=== PATIENT | female | born 1980 | race Caucasian/White ===

== ENCOUNTER 2023-12-03 17:40 | Inpatient (IN) | payer OTHER ==
[2023-12-03 18:56] VITALS: BMI 24.8
[2023-12-03] MEDS ORDERED: BISMUTH SUBSALICYLATE 524 MG/30 ML PO PRN (20:32)
[2023-12-03] MEDS ORDERED: IBUPROFEN 400 MG TABLET (FP) PO PRN (20:32)
[2023-12-03] MEDS ORDERED: chlordiazePOXIDE HCL 25 MG CAPSULE PO PRN (20:32)
[2023-12-03] MEDS ORDERED: ONDANSETRON *ODT* 4 MG TABLET SL PRN (20:32)
[2023-12-03] MEDS ORDERED: NALOXONE (NARCAN) HCL 4 MG/0.1 ML SPRAY NS PRN (20:32)
[2023-12-03] MEDS ORDERED: BENZOCAINE/MENTHOL (CHLORASEPTIC ) LOZENGE MM PRN (20:32)
[2023-12-03] MEDS ORDERED: guaiFENesin 600 MG TABLET.ER (FP) PO PRN (20:32)
[2023-12-03] MEDS ORDERED: BENZONATATE 200 MG CAPSULE PO PRN (20:32)
[2023-12-03] MEDS ORDERED: NALOXONE (NYS OPIOID OVERDOSE PROGRAM) 4 MG/0.1 ML SPRAY NS PRN (20:32)
[2023-12-03] MEDS ORDERED: LOPERAMIDE HCL 2 MG CAPSULE PO PRN (20:32)
[2023-12-03] MEDS ORDERED: POLYETHYLENE GLYCOL (HEALTHYLAX) 3350 17 GM PACKET PO PRN (20:32)
[2023-12-03] MEDS ORDERED: cloNIDine HCL 0.1 MG TABLET ONE (20:44)
[2023-12-03] MEDS: cloNIDine HCL 0.1 MG TABLET PO ONE (20:46)
[2023-12-03] MEDS: chlordiazePOXIDE HCL 25 MG CAPSULE PO ONE (20:46)
[2023-12-03] MEDS: IBUPROFEN 600 MG TABLET (FP) PO PRN (21:01)
[2023-12-03] MEDS ORDERED: MELATONIN 5 MG TABLETS ONE (22:24)
[2023-12-03] MEDS: MELATONIN 5 MG TABLETS PO SCH (22:26)
[2023-12-03] MEDS: THIAMINE 100 MG TABLET PO SCH (22:26)
[2023-12-03] MEDS: chlordiazePOXIDE HCL 25 MG CAPSULE PO SCH (23:58)
[2023-12-04] MEDS: METHOCARBAMOL 500 MG TABLET PO PRN (05:58)
[2023-12-04] MEDS: hydrOXYzine PAMOATE 25 MG CAPSULE (FP) PO PRN (10:19)
[2023-12-04] MEDS: PRENATAL VITAMINS W/ FOLIC ACID TABLET (FP) PO SCH (10:21)
[2023-12-04 14:38] LABS: CHLORIDE 102 mmol/L (98-107); POTASSIUM 3.6 mmol/L (3.5-5.1); SODIUM 135 mmol/L (136-145)
[2023-12-04 14:44] LABS: ALBUMIN 3.1 g/dl (3.4-5.0); CALCIUM 8.7 mg/dL (8.5-10.1)
[2023-12-04 14:45] LABS: ANION GAP 7 mmol/L (4-13); BLOOD UREA NITROGEN 10.3 mg/dL (7-18); CO2 26 mmol/L (21-32); GLUCOSE,RANDOM 156 mg/dL (74-106); HEMATOCRIT 36.5 % (32.4-45.2); HEMOGLOBIN 12.2 GM/dL (10.7-15.3); MCH 30.6 pg (25.7-33.7); MCHC 33.4 g/dl (32.0-36.0); MEAN CELL VOLUME 91.5 fl (80-96); MEAN PLT VOLUME 8.2 fl (7.5-11.1); PLATELET COUNT 89 10^3/uL (134-434); RBC 3.98 M/mm3 (3.60-5.2); RDW 14.2 % (11.6-15.6)
[2023-12-04 14:47] LABS: CREATININE 0.5 mg/dL (0.55-1.3); SGOT/AST 25 U/L (15-37); SGPT/ALT 35 U/L (13-61)
[2023-12-04 14:49] LABS: BILIRUBIN,TOTAL 1.5 mg/dL (0.2-1); TOT PROT 6.2 g/dl (6.4-8.2)
[2023-12-04 14:51] LABS: ALK PHOS 80 U/L (45-117)
[2023-12-04] MEDS: ACETAMINOPHEN 325 MG TABLET (FP) PO PRN (15:05)
[2023-12-04 15:32] LABS: HIV INTERPRETATION NEGATIVE (NEGATIVE)
[2023-12-04] MEDS: SUVOREXANT 10 MG TABLET PO PRN (22:34)
[2023-12-05] MEDS: chlordiazePOXIDE HCL 25 MG CAPSULE PO SCH (05:46)
[2023-12-05] MEDS: FAMOTIDINE 20 MG TABLET PO SCH (07:36)
[2023-12-05] MEDS: DICYCLOMINE HCL 10 MG CAPSULE PO PRN (10:55)
[2023-12-05] MEDS: metoPROLOL SUCCINATE 25 MG TAB.SR.24H (FP) PO SCH (22:32)
[2023-12-06] MEDS ORDERED: chlordiazePOXIDE HCL 10 MG CAPSULE PO PRN
[2023-12-06] MEDS: chlordiazePOXIDE HCL 10 MG CAPSULE PO SCH (05:52)
[2023-12-06] MEDS: MAG HYDROX/AL HYDROX/SIMETH 30 ML UNIT-DOSE CUP PO PRN (11:06)
[2023-12-06] MEDS: MAGNESIUM HYDROX 2400MG/30ML ORAL SUSPENSION 30 ML CUP PO PRN (11:56)
[2023-12-06] MEDS: DOCUSATE SODIUM 100 MG CAPSULE (FP) PO SCH ×2 (12:59→22:20)
[2023-12-06] MEDS: METOPROLOL TARTRATE 50 MG TABLET (FP) PO ONE (13:30)
[2023-12-06] MEDS ORDERED: DOCUSATE SODIUM 100 MG CAPSULE (FP) PO SCH (14:00)
[2023-12-06] MEDS: SUVOREXANT 15 MG TABLET PO PRN (22:20)
[2023-12-07] MEDS: chlordiazePOXIDE HCL 10 MG CAPSULE PO SCH (05:41)
[2023-12-08] MEDS: chlordiazePOXIDE HCL 10 MG CAPSULE PO ONE (05:59)
[2023-12-08 10:21] VITALS: BP 140/95; PULSE 87; RESP 17; TEMP 97.6
== END 2023-12-08 10:25 | disposition home or self-care (01) | DRG 775 ==
LOC: YASAS 17:40 → Y6N 21:55
PROVIDERS: ADMIT Allergy & Immunology; ATTEND Surgery
PROC: HZ2ZZZZ Detoxification Services for Substance Abuse Treatment (ICD-10-PCS; principal; 2023-12-03)
DX: F10.230 Alcohol dependence with withdrawal, uncomplicated (principal); F10.280 Alcohol dependence with alcohol-induced anxiety disorder; F10.282 Alcohol dependence with alcohol-induced sleep disorder; F10.24 Alcohol dependence with alcohol-induced mood disorder; F19.24 Other psychoactive substance dependence with psychoactive substance-induced mood disorder; F41.9 Anxiety disorder, unspecified; E80.6 Other disorders of bilirubin metabolism; R73.9 Hyperglycemia, unspecified
CPT/HCPCS: 36415; 80053; 80305; 80307; 81025; 82247; 83036; 85027; 86780; 86803; 87389; 87522; 93005; 93010